=== PATIENT | male | born 1965 | race Caucasian/White ===

== ENCOUNTER 2017-04-10 20:16 | Emergency (ER) | payer OTHER ==
--- NOTE | 2017-04-10 20:38 | EDM.PDOC ---
ED HPI GENERAL MEDICAL PROBLEM - General Chief Complaint: Upper Extremity Injury/Pain Stated Complaint: PT HURT RT HAND Time Seen by Provider: 04/10/17 20:30 Source of Information: Reports: Patient History Limitations: Reports: No Limitations - History of Present Illness INITIAL COMMENTS - FREE TEXT/NARRATIVE: HISTORY AND PHYSICAL: History of present illness: [Patient comes to the emergency room complaining of pain and swelling to his right middle finger. States that he picked up a piece of aluminum wire from the ground and was carrying it when it accidentally poked into the base of the palmar surface of his right middle finger. He immediately pulled it out but it was approximately 1 inch deep into his finger. He has had increased pain and swelling throughout today. Presents to the emergency room for evaluation. Cannot recall when his last tetanus was.] Review of systems: As per history of present illness and below otherwise all systems reviewed and negative. Past medical history: As per history of present illness and as reviewed below otherwise noncontributory. Surgical history: As per history of present illness and as reviewed below otherwise noncontributory. Social history: No reported history of drug or alcohol abuse. Family history: As per history of present illness and as reviewed below otherwise noncontributory. Physical exam: Gen.: Well-appearing male in no acute distress. HEENT: Atraumatic, normocephalic. Extremities: Right middle finger is swollen and there is a small puncture wound to the base of his middle finger. Is tender with palpation. Neurovascular unremarkable. Neuro: Awake, alert, oriented. Motor and sensory unremarkable throughout. Diagnostics: [Right hand x-ray] Impression: [Puncture wound right middle finger] Plan: [Discussed with patient that x-rays normal. Recommend warm water soaks. Rx given for Keflex 500 mg sig one by mouth 3 times a day 10 days (#30) 0 refills. First dose given in ER. Adacel is updated in ER.] Definitive disposition and diagnosis as appropriate pending reevaluation and review of above. Right Hand Pain Score (Numeric/FACES): 2 - Related Data Allergies Allergy/AdvReac Type Severity Reaction Status Date / Time No Known Allergies Allergy Verified 04/10/17 20:51 Home Meds: Home Meds Terazosin [Hytrin] 1 caplet PO DAILY 04/10/17 [History] Review of Systems - Review of Systems Review Of Systems: ROS reveals no pertinent complaints other than HPI. ED EXAM, GENERAL - Physical Exam Exam: See Below Course - Vital Signs Last Recorded V/S: Last Vital Signs Temp 98.1 F 04/10/17 20:42 Pulse 81 04/10/17 20:42 Resp 18 04/10/17 20:42 BP 133/89 04/10/17 20:42 Pulse Ox 96 04/10/17 20:42 - Orders/Labs/Meds Orders: Active Orders 24 hr Category Date Time Status Vaccines to be Administered [RC] PER UNIT ROUTINE Care 04/10/17 21:01 Active Hand 2V Rt [CR] Stat Exams 04/10/17 20:37 Taken Meds: Medications Discontinued Medications Generic Name Dose Route Start Last Admin Trade Name Massimo PRN Reason Stop Dose Admin Diphtheria/Tetanus/Acell Pertussis 0.5 ml 04/10/17 21:01 04/10/17 21:15 Adacel IM 04/10/17 21:02 0.5 ml .ONCE ONE Administration Departure - Departure Time of Disposition: 21:50 Disposition: Home, Self-Care 01 Condition: Good Clinical Impression: Puncture wound - Discharge Information Referrals: PCP,None [Primary Care Provider] - Forms: ED Department Discharge Additional Instructions: The following information is given to patients seen in the emergency department who are being discharged to home. This information is to outline your options for follow-up care. We provide all patients seen in our emergency department with a follow-up referral. The need for follow-up, as well as the timing and circumstances, are variable depending upon the specifics of your emergency department visit. If you don't have a primary care physician on staff, we will provide you with a referral. We always advise you to contact your personal physician following an emergency department visit to inform them of the circumstance of the visit and for follow-up with them and/or the need for any referrals to a consulting specialist. The emergency department will also refer you to a specialist when appropriate. This referral assures that you have the opportunity for follow-up care with a specialist. All of these measure are taken in an effort to provide you with optimal care, which includes your follow-up. Under all circumstances we always encourage you to contact your private physician who remains a resource for coordinating your care. When calling for follow-up care, please make the office aware that this follow-up is from your recent emergency room visit. If for any reason you are refused follow-up, please contact the [facility] emergency department at and asked to speak to the emergency department charge nurse. [facility] [address] [place] [id number] Establish care and follow-up with a local primary care provider in the next week. Soak hand in warm water w/ Epsom salts twice a day. Return to ER as needed as discussed. - My Orders Last 24 Hours: My Active Orders 04/10/17 20:37 Hand 2V Rt [CR] Stat 04/10/17 21:01 Vaccines to be Administered [RC] PER UNIT ROUTINE - Assessment/Plan Last 24 Hours: My Active Orders 04/10/17 20:37 Hand 2V Rt [CR] Stat 04/10/17 21:01 Vaccines to be Administered [RC] PER UNIT ROUTINE
[2017-04-10] MEDS ORDERED: Diphtheria,Pertussis(Acell),Tetanus Vaccine 0.5 ML Syringe IM ONE (21:01)
[2017-04-10] MEDS ORDERED: Cephalexin 500 MG Cap PO ONE (21:49)
[2017-04-11 01:14] VITALS: BP 116/83
--- NOTE | 2017-04-12 14:06 | CR ---
EXAM DATE: 04/10/17 PATIENT'S AGE: 52 Patient: TERRENCE PALMA Facility: [place], [place] Site . Site : [id number] Study: XRay Extremity Right [id number]/22/2017 9:31:54 PM Ordering Physician: Doctor Wang Final Report: Indication: Concern form body. Pain middle finger. Technique: Two views. Impression: No radiopaque foreign body. No bone lesion or fracture. No significant degenerative or inflammatory change. Dictated by Alfredo Huggins MD @ Apr 10 2017 9:42PM (Electronic Signature) Report Signed by Proxy. [email or web address]
== END 2017-04-10 22:26 | disposition home or self-care (01) ==
LOC: MW.ED 20:16
DX: S61.232A Puncture wound without foreign body of right middle finger without damage to nail, initial encounter (principal); W26.8XXA Contact with other sharp object(s), not elsewhere classified, initial encounter
CPT/HCPCS: 73120-26-RT; 73120-RT; 90471; 90715; 99283; 99283-25